=== PATIENT | female | born 1985 | race Caucasian/White ===

== ENCOUNTER 2017-01-15 13:42 | Emergency (ER) | payer SELFPAY ==
[~2017-01-15] VITALS: Ht 165.1 cm; Wt 68.8 kg
[2017-01-15] MEDS ORDERED: ULTRAM50 MG PO (14:18)
[2017-01-15] MEDS ORDERED: MOTRIN800 MG PO (14:18)
[2017-01-15] MEDS ORDERED: PEN-VEE K,VEET500 MG PO (14:18)
[2017-01-15 14:30] VITALS: BP 132/89
== END 2017-01-15 14:30 | disposition home or self-care (01) ==
LOC: EME 13:42
PROC: 3E0T3BZ Introduction of Anesthetic Agent into Peripheral Nerves and Plexi, Percutaneous Approach (ICD-10-PCS; principal; 2017-01-15)
DX: K02.9 Dental caries, unspecified (principal); K04.7 Periapical abscess without sinus; F17.200 Nicotine dependence, unspecified, uncomplicated
CPT/HCPCS: 99281; 99283